=== PATIENT | male | born 1965 | race Caucasian/White ===

== ENCOUNTER 2020-11-10 22:47 | Emergency (ER) | payer BC, OTHER ==
[2020-11-10 22:59] VITALS: BP 132/77; PULSE 70; TEMP 98.1; BMI 27.7
[2020-11-11] MEDS ORDERED: DEXAMETHASONE SOD PHOSPHATE 10 MG/1 ML VIAL IM ONE (00:09)
[2020-11-11] MEDS ORDERED: diphenhydrAMINE HCL 50 MG CAPSULE PO ONE (00:09)
[2020-11-11] MEDS ORDERED: diphenhydrAMINE HCL 25 MG CAPSULE (FP) PO ONE (00:49)
[2020-11-11] MEDS ORDERED: DEXAMETHASONE SOD PHOSPHATE 10 MG/1 ML VIAL ONE (00:49)
== END 2020-11-11 01:08 | disposition home or self-care (01) ==
LOC: JER 22:47
PROC: 3E0233Z Introduction of Anti-inflammatory into Muscle, Percutaneous Approach (ICD-10-PCS; principal; 2020-11-11)
DX: H10.89 Other conjunctivitis (principal)
CPT/HCPCS: 99283-25; J1100